=== PATIENT | male | born 1950 | race Two or more races ===

== ENCOUNTER 2022-02-12 07:32 | Day surgery (SDC) | payer BC ==
--- NOTE | 2022-02-06 17:25 | EKG ---
Test Date: 2022-02-05 Test Time: 08:44:21 Melon Packer: JESSICA MEASUREMENT RESULTS: Intervals: Rate: 62 FL: 172 QRSD: 68 QT: 396 QTc: 401 [place]: P: 64 FL: 172 QRS: 61 T: 79 INTERPRETIVE STATEMENTS: Normal sinus rhythm Septal infarct, age undetermined Abnormal ECG No previous ECG available for comparison Electronically Signed On 02-06-22 17:24:16 [employer] by Devon Stroud
[2022-02-12] MEDS ORDERED: ALBUTEROL 2.5 MG/3 ML NEB SOL ONE (07:41)
[2022-02-12] MEDS ORDERED: CEFAZOLIN SODIUM 1 GM/VIAL ONE (07:54)
[2022-02-12] MEDS ORDERED: Ringers Lactate 1,000 ML IV ONE (07:54)
[2022-02-12] MEDS ORDERED: BUPIVACAINE 0.5% PF 10 ML VIAL ONE (08:39)
[2022-02-12] MEDS ORDERED: LIDOCAINE 2% MPF 5 ML VIAL ONE (08:49)
[2022-02-12] MEDS ORDERED: MIDAZOLAM HCL 2 MG/2 ML INJ ONE (08:49)
[2022-02-12] MEDS ORDERED: FENTANYL CITR 100 MCG/2 ML ONE (08:49)
[2022-02-12] MEDS ORDERED: propofoL 200 MG/20 ML VIAL IV ONE (08:49)
[2022-02-12] MEDS ORDERED: KETOROLAC 30 MG/ML INJ ONE (09:08)
[2022-02-12] MEDS ORDERED: NS 0.9% VIAL 10 ML ONE ×2 (09:13→09:27)
[2022-02-12] MEDS ORDERED: Phenylephrine HCl 10 MG/ML 1 ML VIAL ONE (09:27)
[2022-02-12] MEDS ORDERED: Mastisol Adhesive Liq ONE (09:44)
--- NOTE | 2022-02-12 10:07 | P.OP ---
Date of Service: 02/12/22 Preop diagnosis: Right neck mass, history of lung cancer Postop diagnosis: Same Procedure performed: Incisional biopsy right neck mass Surgeon: Brayden Munoz MD Knapsack Sprayer: None Estimated blood loss: Minimal Specimen: Right neck mass Findings: Metastatic lung cancer Anesthesia: General Complications: None Drains: None Fluids and blood products: Nonapplicable Disposition: Recovery room Operative note: Patient brought to the OR placed supine position. General anesthesia begun. Patient prepped and draped in usual sterile fashion. 15 blade used to make a 2 cm incision in the base of the right neck. Subcutaneous fascia and platysma divided. A deep lymph node identified. It was pathologic in nature. 15 blade used to make incision over the lymph node ellipse in nature. A piecemeal biopsy was done. Specimen sent for frozen section and revealed metastatic lung cancer. Wound irrigated bleeding controlled cautery. There was enough specimen for diagnosis. 3-0 chromic used to approximate subcutaneous tissue. And 3-0 chromic also used to close skin. Sterile dressing applied. Patient awakened and taken to recovery room in good general condition. CC: Dr. Bailey's office
[2022-02-12] MEDS ORDERED: EPINEPHRINE INH 0.5 ML VIAL IH ONE (10:10)
[2022-02-12] MEDS ORDERED: HYDROCODONE/APAP 5/325 MG TAB PO PRN (10:11)
[2022-02-12] MEDS ORDERED: HYDROCODONE/CHLORPHEN 5 ML/OSYR PO ONE (10:15)
[2022-02-12] MEDS ORDERED: ALBUTEROL INHALER 60 PUFF/8 GM IH PRN ×2 (11:07→12:00)
[2022-02-12 15:09] VITALS: BP 116/74; TEMP 99.3
[2022-02-12 15:11] VITALS: O2SAT 95
== END 2022-02-12 14:09 | disposition home or self-care (01) ==
LOC: OR 07:32
PROVIDERS: ATTEND Surgery
PROC: 0JB40ZZ Excision of Right Neck Subcutaneous Tissue and Fascia, Open Approach (ICD-10-PCS; principal; 2022-02-12 09:00)
DX: C79.89 Secondary malignant neoplasm of other specified sites (principal); R22.1 Localized swelling, mass and lump, neck; Z85.118 Personal history of other malignant neoplasm of bronchus and lung
CPT/HCPCS: 11621; 93005; 88331; 88305; J2704; J2370; J7613; J2250; J3010; A4216 ×2; J7120; J0690; J2001

== ENCOUNTER 2022-02-13 07:39 | Emergency (ER) | payer BC ==
--- OUTSIDE RECORDS SUMMARY | 2022-02-13 07:44 | XMS REPORT | Continuity of Care Document ---
:1950 Author Organization [facility] t Address [address] [place] [address] Care Team Providers Name Role Phone ADELFO DOMITILAANH Primary Care Physician Unavailable DAVIDE INGRAM Attending Clinician Unavailable Davide Macario Attending Clinician Isabelle Ashraf RN Attending Clinician LAWSON LYONS Attending Clinician Unavailable Michel Bustos Attending Clinician Eric Vincent DO Attending Clinician Lawson Lyons MD Attending Clinician DAYAMI WATERMAN III Attending Clinician Unavailable King PAUL MD, James C Attending Clinician Unknown, Attending Attending Clinician Unavailable Doctor Unassigned, [facility] Attending Clinician Unavailable RYANNE INGRAM Attending Clinician Unavailable NIKKO HANKS Attending Clinician Unavailable DAVIDE INGRAM Admitting Clinician Unavailable LAWSON LYONS Admitting Clinician Unavailable Lawson Lyons MD Admitting Clinician Payers Payer Name Policy Type Policy Number Effective Date Expiration Date Baldemar cutler [facility] [id number] 2021 00:00:00 Problems Condition Condition Condition Status Onset Resolution Last Treating Co mments Source Name Details Category Date Date Treatment Clinician Date Pleural Pleural Disease Active 2021-02 Univers effusion effusion 2-05 ity of 00:00: [place] [address] Medical Branch 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 11-05 disease, disease, 00:00: Hospit a lumbar lumbar 00 l Strain of Strain of Disease Active Met hodi back back 11-05 00:00: Hospita 00 l No known No known Disease Unive rs active active ity of problems problems [facility] Allergies, Adverse Reactions, Alerts Allergy Allergy Status Severity Reaction(s) Onset Inactive Treating Comm ents Source Name Type Date Date Clinician NO KNOWN Drug Active Univers ALLERGIE Class ity of S [facility] Social History Social Habit Start Date Stop Date Quantity Comments Source History of Cigarette Smoker Universi ty of tobacco use [facility] Exposure to 2022-01-13 2022-01-23 Not sure [facility] SARS-CoV-2 00:00:00 14:01:00 [facility] (event) Branch Alcohol intake 2022-01-23 2022-01-23 Current drinker Unive rsity of 00:00:00 00:00:00 of alcohol [facility] (finding) Branch History SDOH Food 2022-01-21 2022-01-21 1 Univers ity of Worry 00:00:00 00:00:00 [place] [facility] History SDOH Food 2022-01-21 2022-01-21 1 Univers ity of Scarcity 00:00:00 00:00:00 [place] [facility] History SDOH 2022-01-21 2022-01-21 2 University o f Transport Med 00:00:00 00:00:00 [place] Medic al [facility] History SDOH 2022-01-21 2022-01-21 2 University o f Transport Non-Med 00:00:00 00:00:00 [place] M edical Branch Tobacco use and 2022-01-18 2022-01-18 Smokeless tobacco Un iversity of exposure 00:00:00 00:00:00 non-user [facility] Sex Ass[birth year] At [birth year] Denominational 00:00:00 00:00:00 Hospital Smoking Status Start Date Stop Date Source Tobacco smoking consumption [facility] unknown Smokes tobacco daily 2022-01-18 00:00:00 Univers ity of [facility] Never smoked tobacco [facility] Medications Ordered Filled Start Stop Current Ordering Indication Dosage Frequency Signature Comments Components Source Medication Medication Date Date Medication? Clinician (SIG) Name Name apixaban 2021-02- No 10mg 10 mg, Univer s (ELIQUIS) 03-27 Oral, ity of tablet 10 00:00: 23:10 ONCE, [place] mg [place] :[place] dose, On Medical Sat Branch 01/23/22 at 1800, Routine
Indicatio ns: DVT/PE apixaban 2021-02- Yes 1473 Take 2 Univer s (ELIQUIS) 5 2 01-10 tablets by i ty of mg tablet 00:00: 05:59 mouth [place] 00 :[place] (two) Medical times Branch daily for 7 days, THEN 1 tablet 2 (two) times daily for 23 days. Indication s: blood clot in a deep vein of the extremitie s cefTRIAXone 2021-02- Yes 1000mg 1,000 mg, Univers (ROCEPHIN) 03-2212 IV ity of 1,000 mg in 17:30: 17:29 [facility] [place] NaCl 0.9% 00 :00 Q24H ABX, Medic al (NS) 50 mL 6 doses, Branc h MINI-BAG First dose on Tue01/19/22 at 1130, Last dose on Tue01/24/22 at 1130, Administer over 30 Minutes, 50 mL
Reas on for Anti-Infec tive: Documented Infection< br>Documen isabela Infection Site: Respirator y
Durat ion of Therapy: 7 days metoprolol 2021-02 Yes 50mg 50 mg, Unive rs succinate 2-06 Oral, ity of XL (TOPROL 15:00: DAILY, [place] XL) tablet 00 First dose Med ical 50 mg on Tue Branch 01/19/22 at 0900, Until Discontinu ed, Routine clopidogreL 2021-02 Yes 75mg 75 mg, Univ ers (PLAVIX) 75 2-06 Oral, ity of mg tablet 15:00: DAILY, [place] 75 mg 00 First dose Medical on Tue Branch 01/19/22 at 0900, Until Discontinu ed, Routine azithromyci 2021-02- Yes 500mg 500 mg, U nivers n 03-22 12-10 Oral, ity of (ZITHROMAX) 15:00: 14:59 DAILY, 4 [place] tablet 500 00 :00 doses, Medical mg First dose Branch on Tue01/19/22 at 0900, Last dose on Tue01/22/22 at 0900, HEIDE
Re ason for Anti-Infec tive: Documented Infection< br>Documen isabela Infection Site: Respirator y
Durat ion of Therapy: Other (see Comments) iopamidol 2021-02- No [id number] 100mL 100 mL, Univers (ISOVUE 03-22- Intravenou ity o f 370-500 mL) 13:00: 12:05 s, ONCE, 1 [place] injection 00 :00 dose, On Medica l 100 mL Tue Branch 01/19/22 at 0700, Routine nicotine 2021-02 Yes 1{patch 1 Patch, Un bertha (NICODERM) 2 } Topical, ity o f 21 mg/24 hr 07:15: Administer [place] patch 1 00 over 24 Medical Patch Hours, Branch Q24H, First dose on Tue01/19/22 at 0115, Until Discontinu ed, Routine ipratropium 2021-02 Yes 3mL 3 mL, Unive rs -albuteroL 03-22 Inhalation ity of (DUONEB) 06:15: , Q6H, [place] 0.5 mg-3 00 First dose Medic al mg(2.5 mg on Tue Branch base)/3 mL 01/19/22 at nebulizer 0015, solution 3 Until mL Discontinu ed, Routine traMADoL 2021-02- Yes [id number] 50mg Take 1 Univer s (ULTRAM) 50 03-22-14 tablet by it y of mg tablet 00:00: 05:59 mouth [place] 00 :00 every 6 Medical (six) Branch hours as needed for Pain (scale 4-6) or Pain (scale 7-10) for up to 7 days. Indication s: acute pain traMADoL 2021-02- Yes 4647 50mg Take 1 Univer s (ULTRAM) 50 03-22-14 tablet by it y of mg tablet 00:00: 05:59 mouth [place] 00 :00 every 6 Medical (six) Branch hours as needed for Pain (scale 4-6) or Pain (scale 7-10) for up to 7 days. Indication s: acute pain traMADoL 2021-02- Yes [id number] 50mg Take 1 Univer s (ULTRAM) 50 03-22 tablet by it y of mg tablet 00:00: 05:59 mouth [place] 00 :00 every 6 Medical (six) Branch hours as needed for Pain (scale 4-6) or Pain (scale 7-10) for up to 7 days. Indication s: acute pain levoFLOXaci 2021-02- Yes [id number] 750mg Take 1 Univers n 750 mg 03-22 tablet by ity o f tablet 00:00: 05:59 mouth [place] 00 :00 every 24 Medical (twenty-fo Branch ur) hours for 4 days. levoFLOXaci 2021-02- Yes [id number] 750mg Take 1 Univers n 750 mg 03-22 tablet by ity o f tablet 00:00: 05:59 mouth [place] 00 :00 every 24 Medical (- Branch ur) hours for 4 days. levoFLOXaci 2021-02- Yes [id number] 750mg Take 1 Univers n 750 mg 03-22 tablet by ity o f tablet 00:00: 05:59 mouth [place] 00 :00 every 24 Medical (-fo Branch ur) hours for 4 days. enoxaparin 2021-02 Yes 40mg 40 mg, Unive rs (LOVENOX) 2 Subcutaneo ity of injection 23:00: [place]ILY[place] 40 mg 00 First dose Medical on Tue01/18/22 at 1700, Until Discontinu ed, Routine ondansetron 2021-02 Yes 4mg 4 mg, Slow Univers (ZOFRAN 2-05 IV Push, ity of (PF)) 20:28: Q6HPRN, [place] injection 4 53 Starting Medi omar mg on Tue01/18/22 at 1428, Until Discontinu ed, Routine, Nausea and Vomiting (N/V) HYDROcodone 2021-02- Yes 1{tbl} 1 tablet, Univers -acetaminop 2 12-07 Oral, ity of hen (NORCO 20:28: 20:27 Q6HPRN, [place] as 5) 5-325 mg 48 :48 Starting Medi omar tablet 1 on Mon Branch tablet 01/18/22 at 1428, Until 01/20/22 at 1427, Routine, Pain (scale 4-6) acetaminoph 2021-02 Yes 650mg 650 mg, Un bertha en 2-05 Oral, ity of (TYLENOL) 20:28: Q6HPRN, [place] tablet 650 46 Starting Medic al mg on Mon Branch 01/18/22 at 1428, Until Discontinu ed, Routine, Pain (scale 1-3) azithromyci 2021-02- No 500mg 500 mg, IV Univers n 2-01-18 Piggyback, ity of (ZITHROMAX) 17:30: 19:14 [place]CE, 1 [place] 500 mg in 00 :00 dose, On Medica l NaCl 0.9% [facility] (NS) 250 mL 01/18/22 at VIAL-MATE 1130, IV Administer piggyback over 60 Minutes, 250 mL
R kayla for Anti-Infec tive: Documented Infection< br>Documen isabela Infection Site: Respirator y
Du ration of Therapy: Other (see Comments) cefTRIAXone 2021-02 No 1000mg 1,000 mg, Univers (ROCEPHIN) 03-21 IV ity of 1,000 mg in 17:15: 18:03 [facility] [place] NaCl 0.9% 00 :00 ONCE, 1 Medical (NS) 50 mL dose, On Branc h MINI-BAG 01/18/22 at 1115, Administer over 30 Minutes, 50 mL
Reas on for Anti-Infec tive: Documented Infection< br>Documen isabela Infection Site: Respirator y
Du ration of Therapy: Other (see Comments) metoprolol 2021-02 Yes 50mg Take 50 mg U nivers succinate 0-11 by mouth ity of XL 50 mg 24 00:00: in the [facility] s hr tablet 00 morning. Medica l Branch clopidogreL 2021-02 Yes 75mg Take 75 mg Univers 75 mg 0-11 by mouth ity of tablet 00:00: in the [place] 00 morning. Medical Branch metoprolol 2021-02 Yes 50mg Take 50 mg U nivers succinate 0-11 by mouth ity of XL 50 mg 24 00:00: [place] hr tablet 00 morning. Medica l Branch clopidogreL 2021-02 Yes 75mg Take 75 mg Univers 75 mg 0-11 by mouth ity of tablet 00:00: in the [place] morning. Medical Branch metoprolol 2021-02 Yes 50mg Take 50 mg U nivers succinate 0-11 by mouth ity of XL 50 mg 24 00:00: [place] hr tablet 00 morning. Medica l Branch clopidogreL 2021-02 Yes 75mg Take 75 mg Univers 75 mg 0-11 by mouth ity of tablet 00:00: in the [place] morning. Medical Branch metoprolol 2021-02 Yes 50mg Take 50 mg U nivers succinate 0-11 by mouth ity of XL 50 mg 24 00:00: [place] hr tablet 00 morning. Medica l Branch clopidogreL 2021-02 Yes 75mg Take 75 mg Univers 75 mg 0-11 by mouth ity of tablet 00:00: in the [place] morning. Medical Branch metoprolol Yes 50mg QD Take 50 mg M ethodi succinate 7-[address] XL 00:00: daily. Hospita (TOPROL-XL) 00 l 50 mg 24 hr tablet amy 2015-02 Yes Apply to Univers sulfADIAZIN 0-26 area(s) 2 ity of E 00:00: (two) [place] (SILVADENE) 00 times Medical 1 % cream daily. Branch silver 2015-02 Yes Apply to Univers sulfADIAZIN 0-26 area(s) 2 ity of E 00:00: (two) [place] (SILVADENE) 00 times Medical 1 % cream daily. Branch silver 2015-02 Yes Apply to Univers sulfADIAZIN 0-26 area(s) 2 ity of E 00:00: (two) [place] (SILVADENE) 00 times Medical 1 % cream daily. Branch traMADOL 2015-02 Yes 50mg Take 1 Univers (ULTRAM) 50 0-26 tablet by ity of mg tablet 00:00: mouth [place] 00 every 6 Medical (six) Branch hours as needed for Pain (scale 4-6). amy 2015-02 Yes Apply to Univers sulfADIAZIN 0-26 area(s) 2 ity of E 00:00: (two) [place] (SILVADENE) 00 times Medical 1 % cream daily. Branch silver 2015-02 Yes Apply to [facility] sulfADIAZIN 0-26 area(s) 2 ity of E 00:00: (two) [place] (SILVADENE) 00 times Medical 1 % cream daily. Branch traMADOL 2015-02 Yes 50mg Take 1 Univers (ULTRAM) 50 0-26 tablet by ity of mg tablet 00:00: mouth [place] 00 every 6 Medical (six) Branch hours as needed for Pain (scale 4-6). traMADOL 2015-02 50mg Take 1 Univer s (ULTRAM) 50 0-26 01-19 tablet by it y of mg tablet 00:00: 00:00 mouth [place] 00 :00 every 6 Medical (six) Branch hours as needed for Pain (scale 4-6). Vital Signs Vital Name Observation Time Observation Value Comments Source Systolic blood 2022-01-23 23:30:00 121 mm[Hg] [facility]iver [facility] Diastolic blood 2022-01-23 23:30:00 75 [facility] 2022-01-23 23:30:00 68 /min [facility] Respiratory rate 2022-01-23 23:30:00 20 /min [facility] saturation in 2022-01-23 23:30:00 95 /min [facility] Arterial blood by [facility] Pulse oximetry Branch Body temperature 2022-01-23 20:02:00 37 Shruthi [facility] Body weight 2022-01-23 20:02:00 56.246 kg [facility] BMI 2022-01-23 20:02:00 20.01 kg/m2 [facility] Systolic blood 2022-01-19 23:00:00 145 mm[Hg] Univer sity [facility] Diastolic blood 2022-01-19 23:00:00 66 mm[Hg] Unive rsity [facility] [place] [facility] Heart rate 2022-01-19 23:00:00 74 /min [facility] Respiratory rate 2022-01-19 23:00:00 23 /min [facility] saturation in 2022-01-19 23:00:00 94 /min [facility] Arterial blood by [facility] Pulse oximetry Branch Body temperature 2022-01-19 21:00:00 36.39 Shruthi [facility] Body weight 2022-01-19 20:30:00 56.382 kg [facility] BMI 2022-01-19 20:30:00 20.06 kg/m2 [facility] Body height 2022-01-18 20:30:00 167.6 cm [facility] Systolic blood 2022-01-15 19:04:00 144 mm[Hg] [facility] Diastolic blood 2022-01-15 19:04:00 74 mm[Hg] [facility] Heart rate 2022-01-15 19:04:00 79 /min [facility] Body temperature 2022-01-15 19:04:00 36.61 Shruthi [facility] Respiratory rate 2022-01-15 19:04:00 17 /min [facility] Body weight 2022-01-15 19:04:00 56.7 kg [facility] Oxygen saturation in 2022-01-15 19:04:00 96 /min [facility] Arterial blood by [facility] Pulse oximetry [address] Procedures Procedure Date / Time Performing Clinician Source Performed COMP. METABOLIC PANEL 2022-01-23 21:18:00 Davide Ingram [facility] ([id number]) [facility] CBC WITH DIFF 2022-01-23 21:18:00 Davide Ingram [facility] PROTHROMBIN TIME / INR 2022-01-23 21:18:00 Davide Ingram [facility] ACTIVATED PARTIAL 2022-01-23 21:18:00 Davide Ingram [facility] THRMPLAS [facility] CONSENT/REFUSAL FOR 2022-01-23 19:55:43 Doctor Unassigned, [facility] DIAGNOSIS AND TREATMENT [facility] [place] [facility] XR CHEST 1 VW 2022-01-19 19:07:22 [facility] PROTEIN TOTAL 2022-01-19 18:59:00 [facility] LACTATE DEHYDROGENASE 2022-01-19 18:59:00 Lawson Lyons [facility] GLUCOSE 2022-01-19 18:58:00 Eric Vincent [facility] AMYLASE BODY FLUID 2022-01-19 18:39:00 Eric Vincent [facility] GLUCOSE BODY FLUID 2022-01-19 18:39:00 Lawson Lyons [facility] PH, BODY FLUID 2022-01-19 18:39:00 Eric Vincent [facility] T.PROTEIN BODY FLUID 2022-01-19 18:39:00 Eric Vincent [facility] TOTAL BODY FLUID 2022-01-19 18:38:00 Lawson Lyons [facility] BODY FLUID 2022-01-19 18:38[facility]00 [facility]/ANAEROBIC [facility] ) BODY FLUID DIRECT COUNT 2022-01-19 18:37:00 Eric Vincent [facility] TRANSTHORACIC ECHO (TTE) 2022-01-19 16:16:00 Lawosn Lyons [facility] CT THORAX W CONTRAST 2022-01-19 11:50:00 Lawson Lyons [facility] LACTATE DEHYDROGENASE 2022-01-19 10:08:00 Lawson Lyons [facility] COMP. METABOLIC PANEL 2022-01-19 10:08:00 [id number] LIPID PANEL ([id number])(TOTAL 2022-01-19 10:08:00 Lawson Lyons [facility] CHOLESTEROL, [facility] Branch TRIGLYCERIDES, HDL) CBC WITH DIFF 2022-01-19 10:08:00 [facility] 2022-01-18 22:43:00 Michel Santos [facility] BLOOD CULTURE SCREEN 2022-01-18 17:30:00 Michel Santos [facility] COVID-19 (ID NOW RAPID 2022-01-18 17:18:00 Michel Santos [facility] TESTING) Medical Branch LAB ONLY COVID 2022-01-18 17:18:00 Michel Santos [facility] INTERPRETATION [facility] BLOOD CULTURE SCREEN 2022-01-18 17:15:00 Michel Santos [facility] XR CHEST 1 VW 2022-01-18 16:14:53 Michel Santos [place] [facility] HB ECG ROUTINE & RHYTHM 2022-01-18 16:10:57 Michel Santos [facility] STRIP Medical Branch MAGNESIUM 2022-01-18 16:08:00 Michel Santos [facility] TROPONIN I 2022-01-18 16:08:00 Michel Santos [facility] COMP. METABOLIC PANEL 2022-01-18 16:08:00 Michel Santos [facility] ([id number]) Medical Branch CBC WITH DIFF 2022-01-18 16:08:00 Michel Santos [facility] N-TERMINAL PRO-BNP 2022-01-18 16:08:00 Michel Santos [facility] CONSENT/REFUSAL FOR 2022-01-18 15:31:59 Doctor Unassigned, [facility] DIAGNOSIS AND T[facility] [address] CONSENT/REFUSAL FOR 2022-01-18 15:31:55 Doctor Unassigned, [facility] DIAGNOSIS AND TREATMENT [facility] [address] ASSIGNMENT OF BENEFITS 2022-01-15 18:48:40 Doctor Unassigned, [facility] [address] Plan of Care Planned Activity Planned Date Details Comments Source Future Scheduled 2022-01-28 SHINGLES VACCINES (1 Met [facility] Test 08:47:48 of 2) [code = SHINGLES VACCINES (1 of 2)] Future Scheduled 2022-01-28 65+ [facility]OCOCCAL [facility] Test 08:47:48 VACCINE (1 - PCV) [code = 65+ PNEUMOCOCCAL VACCINE (1 - PCV)] Future Scheduled 2022-01-28 INFLUENZA VACCINE [facility] Test 08:47:48 [code = INFLUENZA VACCINE] Future Scheduled 2022-01-28 COVID-19 VACCINE (#1) [facility] Hospital Test 08:47:48 [code = COVID-19 VACCINE (#1)] Future Scheduled 2022-01-28 Hepatitis C screening [facility] Test 08:47:48 (procedure) [code = 508616223] Future Scheduled 2022-01-28 COLONOSCOPY SCREENING [facility] Test 08:47:48 [code = COLONOSCOPY SCREENING] Encounters Start End Encounter Admission Attending Care Care Encounter Source Date/Time Date/Time Type Type Clinicians Facility Department ID 2022-01-23 2022-01-23 [id number] Univers 14:03:00 18:00:00 [facility] 2022-01-23 [facility] [id number] Univers 14:03:00 18:00:00 Davide BEY [id number] i ty of [place] 4.2.7.2.686 [facility] [id number] [facility] 084 Branch 2022-01-20 2022-01-20 Transition TOÑO Ashraf [id number] Univers 00:00:00 00:00:00 of Care Isabelle GOODMAN [id number] i ty of NIL[place] 4.2.7.2.686 [facility] [id number] [facility] 403 Branch 2022-01-18 2022-01-19 Inpatient X STEPHEN [facility] LELA [id number] Univers 09:41:00 19:09:00 LAWSON [facility] 2022-01-18 2022-01-19 Hospital Michel Santos [facility] [id number] Univers 09:41:00 19:09:00 Encounter Eric Vincent [id number] ity of Lawson Lyons 4.2.7.2.686 [facility] [id number] [place] [id number] Branch 2022-01-15 2022-01-15 Outpatient Peggy WATERMAN III [facility] [id number] Univers 13:00:00 14:22:51 DAYAMI lombardi [facility] 2022-01-15 2022-01-15 Urgent Dayami Waterman [facility] [id number] Univers 13:00:00 13:20:00 Care Unknown, Attending HEALTH [id number] it[facility] 4.2.7.2.686 Dennis as KENDY?BLEA [id number] Pr dical [address] MEDICAL OFFICE BUILDING 2022-01-15 2022-01-15 Orders Doctor KIMBERLY [id number] Univers 00:00:00 00:00:00 Only Unassigned, EMILEE [id number] [facility] 4.2.7.2.686 Dennis as [id number] [address] 2020-11-05 2020-11-05 Outpatient SIFLeanna, [facility] [id number] [place] 00:00:00 00:00:00 RYANNE [address] 2020-11-05 2020-11-05 Outpatient NIKKO HANKS [facility] [id number] [place] 00:00:00 00:00:[address] Results Test Description Test Time Test Comments Results Result Comments Source CBC WITH DIFF 2022-01-23 22:11:32 Test Item Value Reference Range Interpretation Comme nts WBC (test code = 6690-2) See_Comment H [A utomated message] The system which [email or web address] nerated this result transmit isabela reference range: 4.20 - 1 0.70 10*3/?L. The reference r cesar was not used to interpr et this result as normal/abnor mal. RBC (test code = 789-8) See_Comment [Au tomated message] The system which [email or web address] nerated this result transmit isabela reference range: 4.26 - 5 .52 10*6/?L. The reference r cesar was not used to interpr et this result as normal/abnor mal. HGB (test code = 718-7) 14.4 g/dL 12.2-16.4 HCT (test code = 4544-3) 42.7 % 38.4-49.3 MCV (test code = 787-2) 93.2 fL 81.7-95.6 MCH (test code = 785-6) 31.4 pg 26.1-32.7 MCHC (test code = 786-4) 33.7 g/dL 31.2-35.0 RDW-SD (test code = 74583-1) 42.8 fL 38.5-51.6 RDW-CV (test code = 788-0) 12.4 % 12.1-15.4 PLT (test code = 777-3) See_Comment [Au tomated message] The system which ge nerated this result transmit isabela reference range: 150 - 32 8 10*3/?L. The reference range was not used to interpret th is result as normal/abnormal . MPV (test code = 31078-3) 11.5 fL 9.8-13.0 NRBC/100 WBC (test code = See_Comment [ Automated message] The [id number]) system which ge nerated this result transmit isabela reference range: 0.0 - 10 .0 /100 WBCs. The reference r cesar was not used to interpr et this result as normal/abnor mal. NRBC x10^3 (test code = See_Comment [Au tomated message] The 7897416313) system which [email or web address] nerated this result transmit isabela reference range: 10*3/?L. The reference range was not u sed to interpret this result as normal/abnormal . GRAN MAT (NEUT) % (test code 78.5 % = 770-8) IMM GRAN % (test code = 0.80 % 6877098617) LYMPH % (test code = 736-9) 5.3 % MONO % (test code = 5905-5) 9.5 % EOS % (test code = 713-8) 5.3 % BASO % (test code = 706-2) 0.6 % GRAN MAT x10^3(ANC) (test 13.51 10*3/uL 1.99-6.95 H code = 9229217137) IMM GRAN x10^3 (test code = 0.13 10*3/uL 0.00-0.06 H 3441659828) LYMPH x10^3 (test code = 0.91 10*3/uL 1.09-3.23 L 731-0) MONO x10^3 (test code = 1.64 10*3/uL 0.36-1.02 H 742-7) EOS x10^3 (test code = 0.91 10*3/uL 0.06-0.53 H 711-2) BASO x10^3 (test code = 0.11 10*3/uL 0.01-0.09 H 704-7) Lab Interpretation (test Abnormal code = 39165-4) [facility]. METABOLIC PANEL ([id number])2022-01-23 21:44:52 Test Item Value Reference Range Interpretation Comments NA (test code = 133 mmol/L 135-145 L 2124908117) K (test code = 4.5 mmol/L 3.5-5.0 4976582108) CL (test code = 103 mmol/L 98-108 6074067826) CO2 TOTAL (test code = 24 mmol/L 23-31 1780827538) AGAP (test code = 2-16 5325840404) BUN (test code = 13 mg/dL 7-23 8931460834) GLUCOSE (test code = 127 mg/dL 70-110 H 3663614583) CREATININE (test code = 0.66 mg/dL 0.60-1.25 9225121340) TOTAL BILI (test code = 0.4 mg/dL 0.1-1.7 4886046722) CALCIUM (test code = 8.2 mg/dL 8.6-10.6 L 9884759513) T PROTEIN (test code = 5.9 g/dL 6.3-8.2 L 4952451489) ALBUMIN (test code = 3.1 g/dL 3.5-5.0 L 2646940279) ALK PHOS (test code = 71 U/L 34-122 0126288636) ALTv (test code = 26 U/L 5-50 1742-6) AST(SGOT) (test code = 26 U/L 13-40 0728838571) eGFR (test code = mL/min/1.73m2 2233903171) LATIA (test code = LATIA) Association of Glomerular Filtration Rate (GFR) and Staging of Kidney Disease* + --+ --+ ------+| GFR (mL/min/1.73 m2) ?| With Kidney Damage ?| ?Without Kidney Damage+ --------+ --------+ +| ?>90 ?| ?Stage one ?| ? Normal ?+ ---+ ---+ -------+| ?60-89 ?| ?Stage two ?| ? Decreased GFR ? + --+ --+ ------+| ?30-59 ?| ?Stage three ?| ? Stage three ? + --+ --+ ------+| ?15-29 ?| ?Stage four ? | ? Stage four ?+ ---+ ---+ -------+| ?<15 (or dialysis) ? ?| ?Stage five ? | ? Stage five ?+ ---+ ---+ -------+ *Each stage assumes the associated GFR level has been in effect for at least three months. ?Stages 1 to 5, with or without kidney disease, indicate chronic kidney disease. Notes: Determination of stages one and two (with eGFR >59mL/min/1.73 m2) requires estimation of kidney damage for at least three months as defined by structural or functional abnormalities of the kidney, manifested by either:Pathological abnormalities or Markers of kidney damage (including abnormalities in the composition of the blood or urine or abnormalities in imaging tests). Lab Interpretation Abnormal (test code = 72055-6) [facility] THRM[facility] [id number] 21:38:09 Test Item Value Reference Range Interpretation Comments APTT Patient (test See_Comment [Automat ed code = 3173-2) message] The system which generated this result transmitted reference range : 23 - 38 Seconds . The reference range was not used to interpr et this result as normal/abnormal . LATIA (test code = LATIA) The [facility] patient population mean normal value for aPTT is 30 seconds. Lab Interpretation Normal (test code = 31919-4) [facility] HospitalProthrombin Time / [id number] 21:36:09 Test Item Value Reference Range Interpretation Comments PROTIME PATIENT (test See_Comment [Auto mated message] code = 5964-2) The system wh ich generated this result transmitted ref erence range: 12.0 - 1 4.7 Seconds. The re ference range was not u sed to interpret this result as normal/abnor mal. INR (test code = 6301-6) Nor mal INR <1.1; Warfarin Therap eutic range 2.0 to 3. 0 or 2.5 to 3.5, dep ending upon the indica tions. Lab Interpretation (test Normal code = 69886-8) [facility] HospitalTransthoracic echo (TTE)2022-01-19 21:50:45 Test Item Value Reference Range Interpretation Comments Height (test code = in 6219579981) Weight (test code = lbs 4367749774) Systolic BP (test code = mmHg 4870715712) Diastolic BP (test code mmHg = 0712702019) Heart Rate (test code = bpm 0380602306) BSA (test code = 1.65 m2 4714096282) Ao root diam (test code 4.00 cm = 4123046693) Aortic root (test code = 4.0 cm 1606404395) Ao root annulus (test 4.0 cm code = 0898444134) LVOT diameter (test code 1.95 cm = 4562458107) LVOT area (test code = 3.00 cm2 7040206473) LVIDD (test code = 3.60 cm 6938205847) Left Ventricular End 53.1 mL Diastolic Volume by Teichholz Method (test code = 9524641) IVS (test code = 1.22 cm 7402801628) Interventricular Septum 1.22 cm Diastolic Thickness by 2D (test code = 4353784) LVPWD (test code = 1.22 cm 7023495172) PW (test code = 1.22 cm 0.6-1.8 2946746297) EF(Teich) (test code = 55.10 % 1700799375) LVIDS (test code = 2.60 cm 9981664105) Left Ventricular End 23.9 mL Systolic Volume by Teichholz Method (test code = 2293891) FS (test code = 28 % 4533003395) EF - 2D (test code = 55.10 % 67454214) LA size (test code = 3.1 cm 6144754775) TR Peak Hubert (test code = 222.1 cm/s 3524696887) Triscuspid Valve mmHg Regurgitation Peak Gradient (test code = 7537746165) LAV(MOD-sp4) (test code 48.30 mL = 0613823180) MV Peak E Hubert (test code 63.0 cm/s = 0739452270) MV stenosis pressure 1/2 59.3 ms time (test code = 5798452580) E wave decelartion time 0.20 s (test code = 0919496641) MV Peak A Hubert (test code 65.7 cm/s = 0693881024) E/A ratio (test code = ratio 7576671314) MV Prop V (test code = 71.80 cm/s 9893190424) MV E/e' septal (test 9.9 cm/s code = 4307806522) Tapse (test code = 1.89 cm 6606980635) LVOT stroke volume (test 93.20 cm3 code = 5233707697) LVOT peak hubert (test code 142.7 cm/s = 1393824801) LVOT mn grad (test code mmHg = 8028403013) AV LVOT peak gradient mmHg (test code = 4427601002) LVOT peak VTI (test code 31.3 cm = 4379687524) LV V1 mean (test code = 90.90 cm/s 1774042985) Aortic valve mean 94.4 cm/s velocity (test code = 1823386981) Ao peak hubert (test code = 131.0 cm/s 9519569894) Ao VTI (test code = 29.8 cm 6147649790) AV area by cont VTI 3.1 cm2 (test code = 2474384150) AV area peak hubert (test 3.2 cm2 code = 9916494913) Ao max PG (test code = 6.90 mm[Hg] 1719108725) AV peak gradient (test mmHg code = 8868117670) AV valve area (test code 3.10 cm2 = 6208538576) AV mean gradient (test mmHg code = 2751606092) Radiology Study observation (narrative) (test code = 97711-0) LATIA (test code = LATIA) ?Left?Ventricle: Left ventricle size is normal. Normal wall thickness. Normal wall motion. Normal systolic function with a visually estimated EF of 55 - 60%. ?Right?Ventricle: Right ventricle size is normal. Normal systolic function. ?Tricuspid?Valve: Insufficient tricuspid regurgitation jet to estimate RVSP, but probably normal. RA pressure is 0-5 mmHg. ?Left?Atrium: Left atrium is mildly dilated. ?Pericardium: Small pericardial effusion present. No indication of cardiac tamponade. Left VentricleLeft ventricle size is normal. Normal wall thickness. Normal wall motion. Normal systolic function with a visually estimated EF of 55 - 60%. Indeterminate diastolic function.Right VentricleRight ventricle size is normal. Normal systolic function.Left AtriumLeft atrium is mildly dilated.Right AtriumRight atrium size is normal. There is a prominent Eustachian valve.Mitral ValveMitral valve structure is normal. Trace transvalvular regurgitation.Tricusp id ValveTricuspid valve structure is normal. Insufficient tricuspid regurgitation jet to estimate RVSP, but probably normal.Trace transvalvular regurgitation. RA pressure is 0-5 mmHg.Aortic ValveTricuspid.Pulmon ic ValveNot well visualized.Ascending AortaNormal sized aorta.PericardiumSmal l pericardial effusion present. No indication of cardiac tamponade.Study DetailsStudy quality was adequate. A complete echocardiogram was performed using 2D, color flow Doppler and spectral Doppler. [facility] HospitalPH, Body [id number] 21:42:04 Test Item Value Reference Range Interpretation Comments PH BF (test code = 5699573546) UNSPUN BODY FLUID COLOR Yellow (test code = 8512903250) UNSPUN BODY FLUID Slightly Cloudy CLARITY (test code = 8187692554) SPUN BODY FLUID COLOR Yellow (test code = 8043378931) SPUN BODY FLUID CLARITY Clear (test code = 8690551281) Sediment (test code = The sediment volume is 0741397718) <0.1 mLs of the total fluid volume of 4.0 mls and its color is red/white. [facility] HospitalProtein Total [id number] 20:11:06 Test Item Value Reference Range Interpretation Comments T PROTEIN (test code = 2740426821) 7.2 g/dL 6.3-8.2 Lab Interpretation (test code = Normal 52868-0) [facility] HospitalLACTATE [id number] 20:11:06 Test Item Value Reference Range Interpretation Comments LDH (test code = 1273475523) 191 U/L 120-246 Lab Interpretation (test code = Normal 44216-3) [facility] HospitalGlucose, [id number] 20:10:40 Test Item Value Reference Range Interpretation Comments GLUCOSE (test code = 5404629821) 129 mg/dL 70-110 H Lab Interpretation (test code = Abnormal 16097-4) [facility] HospitalCBC WITH [id number] 17:10:48 Test Item Value Reference Range Interpretation Comments WBC (test code = See_Comment H [Automated 6690-2) message] The system which generated this result transmit isabela reference range : 4.20 - 10.70 10*3/?L. The reference range was not used to interpret this result as normal/abnormal . RBC (test code = See_Comment [Automated 789-8) message] The system which generated this result transmit isabela reference range : 4.26 - 5.52 10*6/?L. The reference range was not used to interpret this result as normal/abnormal . HGB (test code = 16.1 g/dL 12.2-16.4 718-7) HCT (test code = 47.3 % 38.4-49.3 4544-3) MCV (test code = 92.6 fL 81.7-95.6 787-2) MCH (test code = 31.5 pg 26.1-32.7 785-6) MCHC (test code = 34.0 g/dL 31.2-35.0 786-4) RDW-SD (test code = 43.6 fL 38.5-51.6 77853-1) RDW-CV (test code = 12.8 % 12.1-15.4 788-0) PLT (test code = See_Comment [Automated 777-3) message] The system which generated this result transmit isabela reference range : 150 - 328 10*3/ ?L. The reference range was not u sed to interpret th is result as normal/abnormal . MPV (test code = 11.6 fL 9.8-13.0 49594-6) NRBC/100 WBC (test See_Comment [Automat ed code = 9613986119) message] The system which generated this result transmit isabela reference range : 0.0 - 10.0 /100 WBCs. The reference range was not used to interpret this result as normal/abnormal . NRBC x10^3 (test code See_Comment [Auto mated = 7581645054) message] The system which generated this result transmit isabela reference range : 10*3/?L. The reference range was not used to interpret this result as normal/abnormal . GRAN MAT (NEUT) % 74.4 % (test code = 770-8) IMM GRAN % (test code 0.60 % = 9296716256) LYMPH % (test code = 7.1 % 736-9) MONO % (test code = 10.2 % 5905-5) EOS % (test code = 6.9 % 713-8) BASO % (test code = 0.8 % 706-2) GRAN MAT x10^3(ANC) 13.50 10*3/uL 1.99-6.95 H (test code = 3625962558) IMM GRAN x10^3 (test 0.10 10*3/uL 0.00-0.06 H code = 1106118525) LYMPH x10^3 (test code 1.28 10*3/uL 1.09-3.23 = 731-0) MONO x10^3 (test code 1.85 10*3/uL 0.36-1.02 H = 742-7) EOS x10^3 (test code = 1.26 10*3/uL 0.06-0.53 H 711-2) BASO x10^3 (test code 0.14 10*3/uL 0.01-0.09 H = 704-7) Lab Interpretation Abnormal (test code = 57413-1) [facility] [id number] 16:54:19 Test Item Value Reference Interpretation Comments Range TROPONIN I (test 0.002 ng/mL See_Comment [Automated code = 5242036756) message] The system which generated this result transmitted reference range : <=0.034. The reference range was not used to interpret this result as normal/abnormal . LATIA (test code = Reference (Normal) LATIA) Range (defined by the 99th percentile reference limit): <= 0.034 ng/mL Note: Cardiac troponin begins to rise 3-4 hours after the onset of ischemia. Repeat in 4-6 hours if the sample was drawn within 3-4 hours of the onset of the symptom and found normal. Diagnosis of myocardial injury is made with acute changes in cTn concentrations with at least one serial sample above the 99th percentile upper reference limit (URL), taken together with the patient's clinical presentation. Biotin has been reported to cause a negative bias, interpret results relative to patient's use of biotin. Lab Interpretation Normal (test code = 66511-3) [facility] HospitalN-TERMINAL [id number] 16:51:18 Test Item Value Reference Range Interpretation Comments NT-proBNP (test code 111 pg/mL See_Comment [Autom ated = 7337416930) message] The system which generated this result transmitted reference range : <=125. The reference range was not used to interpret this result as normal/abnormal . LATIA (test code = LATIA) Biotin has been reported to cause a negative bias, interpret results relative to patient's use of biotin. Lab Interpretation Normal (test code = 67077-8) [facility] HospitalMAGNESIUM2022-12-05 16:43:36 Test Item Value Reference Range Interpretation Comments MAGNESIUM (test code = 6567634390) 2.3 mg/dL 1.7-2.4 Lab Interpretation (test code = Normal 09662-9) [facility]. METABOLIC PANEL (39870)2022-01-18 16:43:16 Test Item Value Reference Range Interpretation Comments NA (test code = 135 mmol/L 135-145 6214252753) K (test code = 4.5 mmol/L 3.5-5.0 4971058934) CL (test code = 104 mmol/L 98-108 9472573059) CO2 TOTAL (test code = 26 mmol/L 23-31 0233647191) AGAP (test code = 2-16 8724987358) BUN (test code = 15 mg/dL 7-23 0164805966) GLUCOSE (test code = 131 mg/dL 70-110 H 8371345596) CREATININE (test code = 0.87 mg/dL 0.60-1.25 3888658649) TOTAL BILI (test code = 0.6 mg/dL 0.1-1.3 7402682465) CALCIUM (test code = 9.0 mg/dL 8.6-10.6 1687300026) T PROTEIN (test code = 7.0 g/dL 6.3-8.2 6094298444) ALBUMIN (test code = 3.9 g/dL 3.5-5.0 5544262906) ALK PHOS (test code = 88 U/L 34-122 1177054616) ALTv (test code = 22 U/L 5-50 1742-6) AST(SGOT) (test code = 21 U/L 13-40 1394973683) eGFR (test code = mL/min/1.73m2 8916138319) LATIA (test code = LATIA) Association of Glomerular Filtration Rate (GFR) and Staging of Kidney Disease* + --+ --+ ------+| GFR (mL/min/1.73 m2) ?| With Kidney Damage ?| ?Without Kidney Damage+ --------+ --------+ +| ?>90 ?| ?Stage one ?| ? Normal ?+ ---+ ---+ -------+| ?60-89 ?| ?Stage two ?| ? Decreased GFR ? + --+ --+ ------+| ?30-59 ?| ?Stage three ?| ? Stage three ? + --+ --+ ------+| ?15-29 ?| ?Stage four ? | ? Stage four ?+ ---+ ---+ -------+| ?<15 (or dialysis) ? ?| ?Stage five ? | ? Stage five ?+ ---+ ---+ -------+ *Each stage assumes the associated GFR level has been in effect for at least three months. ?Stages 1 to 5, with or without kidney disease, indicate chronic kidney disease. Notes: Determination of stages one and two (with eGFR >59mL/min/1.73 m2) requires estimation of kidney damage for at least three months as defined by structural or functional abnormalities of the kidney, manifested by either:Pathological abnormalities or Markers of kidney damage (including abnormalities in the composition of the blood or urine or abnormalities in imaging tests). Lab Interpretation Abnormal (test code = 37646-2) [facility]"
[2022-02-13] MEDS ORDERED: LEVALBUTEROL 1.25 MG/3 ML NEB ONE (07:53)
[2022-02-13 08:09] LABS: Absolute Lymphocytes (CBC) 0.9 K/uL (0.7-4.9); Hematocrit 46.4 % (39.6-49.0); Lymphocytes % 5.1 % (15.3-44.8); MCV 94.4 fL (80-100); MPV 9.4 fL (7.6-11.3); RBC Red Blood Cell Count 4.91 M/uL (4.33-5.43)
--- NOTE | 2022-02-13 08:25 | RAD REPORT ---
EXAM DESCRIPTION: RAD - Chest Single View - 02/13/2022 8:14 am CLINICAL HISTORY: DYSPNEA COMPARISON: CHEST PA AND LAT 2 VIEW dated 02/21/2012; CHEST PA AND LAT 2 VIEW dated 11/03/2010; Ct Skul l/Thigh dated 01/14/2022; Thorax Wo Con dated 07/16/2021 FINDINGS: Near complete whiteout of the right lung. Shift of the mediastinum to the left. The left l owen is clear. No fracture. Cardiac silhouette is obscured IMPRESSION: Near complete white out of the right lung. This is likely predominantly secondary to a l arge right presumably malignant pleural effusion.
[2022-02-13 08:28] LABS: Albumin 2.7 g/dL (3.4-5.0); Bilirubin Direct 0.1 mg/dL (0-0.2); Bilirubin Total 0.4 mg/dL (0.2-1.0); Magnesium 2.4 mg/dL (1.6-2.4); Potassium 4.5 mmol/L (3.5-5.1); Protein, Total 7.1 g/dL (6.4-8.2)
[2022-02-13 08:41] LABS: SARS-COV-2 RT PCR NEGATIVE (NEGATIVE)
--- NOTE | 2022-02-13 08:50 | EDPHYS ---
Physician Documentation [facility] Name: Kaiden Ulrich Age: 71 yrs Sex: Male : 1950 Arrival Date: 02/13/2022 Time: 07:40 Bed 4 Private MD: ED Physician Ole Madden HPI: 02/13 07:47 This 71 yrs old Male presents to ER via Unassigned with complaints of sob. rn 07:47 The patient has shortness of breath at rest. Onset: The symptoms/episode began/occurred rn yesterday. Duration: The symptoms are continuous. The patient's shortness of breath is aggravated by exertion, light activity, is alleviated by nothing. Associated signs and symptoms: Pertinent positives: non-productive cough, Pertinent negatives: fever, hemoptysis. Severity of symptoms: At their worst the symptoms were moderate in the emergency department the symptoms are unchanged. The patient has experienced similar episodes in the past. The patient has been recently seen by a physician:. Pt states hx of lung cancer, had right neck biopsy yesterday, sob got worse yesterday. States sob often but worse now. NO fever. Doesn't feel ill. No trauma. . Historical: - Allergies: 07:55 No Known Allergies; jl7 - Home Meds: 07:57 metoprolol tartrate 50 mg Oral tab 1 tab once daily [Active]; Plavix 75 mg Oral tab 1 jl7 tab once daily [Active]; - PMHx: 07:57 Hypertensive disorder; lung cancer, stage 4; DVT; 01/2022; jl7 - Immunization history:: Adult Immunizations unknown. - Social history:: Smoking status: Patient/guardian denies using tobacco, Stopped _ months ago 1. - Family history:: not pertinent. - Hospitalizations: : No recent hospitalization is reported. ROS: 07:47 Constitutional: Negative for fever, chills Eyes: Negative for injury, pain, redness, rn and discharge, Neck: Negative for injury, pain, and swelling, Cardiovascular: Negative for chest pain, palpitations, and edema, Respiratory: + sob Abdomen/GI: Negative for abdominal pain, nausea, vomiting, diarrhea, and constipation, Back: Negative for injury and pain, MS/Extremity: Negative for injury and deformity, Skin: Negative for injury, rash, and discoloration, Neuro: Negative for headache, numbness, tingling, and seizure. Exam: 07:47 Constitutional: Thin male, + moderate tachypnea Head/Face: Normocephalic, atraumatic. rn Eyes: Periorbital areas with no swelling, redness, or edema. Cardiovascular: Regular rate and rhythm. No pulse deficits. Respiratory: + moderate tachypnea, coarse breath sounds left lung, diminished on right Abdomen/GI: Soft, non-tender Skin: Warm, dry MS/ Extremity: Pulses equal, no cyanosis Neuro: Awake and alert, GCS 15 07:52 ECG was reviewed by the Attending Physician. rn Vital Signs: 07:48 BP 173 / 98; Pulse 70; Resp 30; Temp 96.3; Pulse Ox 87% on R/A; Weight 54.43 kg; Height jl7 5 ft. 6 in. (167.64 cm); 08:45 BP 155 / 98; Pulse 82; Resp 25; Pulse Ox 98% on 40% BiPAP; ph 10:38 BP 131 / 94; Pulse 73; Resp 22; Pulse Ox 100% on 40% BiPAP; ph 11:58 BP 122 / 74; Pulse 55; Resp 19; Pulse Ox 99% on 40% BiPAP; mb9 12:57 BP 131 / 92; Pulse 68; Resp 19; Pulse Ox 100% on 40% BiPAP; Pain 0/10; mb9 13:30 BP 130 / 86; Pulse 68; Resp 19; Pulse Ox 100% on 40% BiPAP; mb9 14:30 BP 138 / 87; Pulse 60; Resp 19; Pulse Ox 100% on 40% BiPAP; mb9 15:18 BP 124 / 83; Pulse 77; Resp 19; Pulse Ox 100% on 40% BiPAP; mb9 07:48 Body Mass Index 19.37 (54.43 kg, 167.64 cm) jl7 MDM: 07:41 Patient medically screened. rn 08:26 ED course: Pt markedly improved with Bipap. rn 08:47 Differential diagnosis: Myocardial Infarction pneumonia, Pneumothorax pulmonary edema, rn Pulmonary Embolism pleural effusion. Data reviewed: vital signs, nurses notes, lab test result(s), radiologic studies, plain films, and as a result, I will admit patient. Counseling: I had a detailed discussion with the patient and/or guardian regarding: the historical points, exam findings, and any diagnostic results supporting the discharge/admit diagnosis, lab results, radiology results, the need to transfer to another facility, for higher level of care. Response to treatment: the patient's symptoms have markedly improved after treatment, and as a result, I will admit patient. ED course: COnsulted with Dr. Mercer, radiology not here for drainage of pleural effusion, Dr. chiang not available for PleurX catheter, recommends transfer. . 12:20 ED course: Waiting on bed assignment from [facility]. . rn 02/13 07:41 Order name: BMP; Complete Time: 08:40 rn 02/13 07:41 Order name: Blood Culture Adult (2) rn 02/13 07:41 Order name: CBC with Diff; Complete Time: 08:17 rn 02/13 07:41 Order name: Hepatic Function; Complete Time: 08:40 rn 02/13 07:41 Order name: Magnesium; Complete Time: 08:40 rn 02/13 07:41 Order name: NT PRO-BNP; Complete Time: 08:40 rn 02/13 07:41 Order name: PT-INR; Complete Time: 09:31 rn 02/13 07:41 Order name: Ptt, Activated; Complete Time: 09:31 rn 02/13 07:41 Order name: Troponin HS; Complete Time: 08:40 rn 02/13 07:41 Order name: XRAY CXR (1 view); Complete Time: 08:26 rn 02/13 07:41 Order name: COVID-19/FLU A+B; Complete Time: 08:50 rn 02/13 08:05 Order name: Lactate w/ 2H reflex if indic.; Complete Time: 09:31 rn 02/13 08:10 Order name: CT Chest For PE Angio; Complete Time: 09:31 rn 02/13 08:17 Order name: BIPAP; Complete Time: 14:02 rn 02/13 07:41 Order name: EKG; Complete Time: 07:42 rn 02/13 07:41 Order name: Cardiac monitoring; Complete Time: 07:58 rn 02/13 07:41 Order name: EKG - Nurse/Tech; Complete Time: 07:58 rn 02/13 07:41 Order name: IV Saline Lock; Complete Time: 07:58 rn 02/13 07:41 Order name: Labs collected and sent; Complete Time: 07:58 rn 02/13 07:41 Order name: O2 Per Protocol; Complete Time: 07:58 rn 02/13 07:41 Order name: O2 Sat Monitoring; Complete Time: 07:58 rn EC:52 Rate is 79 beats/min. Rhythm is regular. QRS Atco is Normal. WI interval is normal. QRS rn interval is normal. QT interval is normal. No Q waves. T waves are Normal. No ST changes noted. Clinical impression: NSR w/ Non-specific ST/T Changes. Interpreted by me. Reviewed by me. Administered Medications: :58 Drug: Xopenex (levalbuterol) (3) 1.25 mg Route: Inhalation; ph Disposition: 08:47 Critical Care:. rn Disposition Summary: 02/13/22 08:49 Transfer Ordered Transfer Location: [facility] rn Reason: Higher level of care rn Condition: Stable rn Problem: an ongoing problem rn Symptoms: have improved rn Accepting Physician: Dr.Sunjay Stewart Client Services Specialist [facility](02/13/22 16:12) mb9 Diagnosis - Malignant pleural effusion rn - Dyspnea, unspecified rn Forms: - Medication Reconciliation Form rn - SBAR form turner off time excluding procedures: 08:47 Critical care time: Bedside Care: 35 minutes, Consultation: 5 minutes. Total time: 40 rn minutes Signatures: Dispatcher [employer] EDMS Ole Madden MD MD rn Hall, Patricia RN RN Bob Cueto RN RN marquis7 Luz Elena Horowitz Mary Beth, RN RN mb9 Corrections: (The following items were deleted from the chart) 15:03 08:49 Dr. sary brannon 16:12 15:03 Dr.Sunjay Stewart Client Services Specialist [facility] eb mb9
--- NOTE | 2022-02-13 08:50 | ER ---
Nurse's Notes [facility] Name: Kaiden Ulrich Age: 71 yrs Sex: Male : 1950 Arrival Date: 02/13/2022 Time: 07:40 Bed 4 Private MD: Diagnosis: Malignant pleural effusion;Dyspnea, unspecified Presentation: 02/13 07:48 Chief complaint: Patient states: Difficulty breathing since yesterday, hx of stage 4 jl7 lung cancer, lymph node biopsy yesterday. Coronavirus screen: Vaccine status: difficulty breathing, Client presents with at least one sign or symptom that may indicate coronavirus-19. Ebola Screen: No symptoms or risks identified at this time. Initial Sepsis Screen: Does the patient meet any 2 criteria? RR > 20 per min. No. Patient's initial sepsis screen is negative. Does the patient have a suspected source of infection? No. Patient's initial sepsis screen is negative. Risk Assessment: Do you want to hurt yourself or someone else? Patient reports no desire to harm self or others. Onset of symptoms was February 12, 2022. Care prior to arrival: None. 07:48 Method Of Arrival: Wheelchair [facility] 07:48 Acuity: FIDELINA 2 jl7 Triage Assessment: 07:57 General: Appears distressed, uncomfortable, Behavior is cooperative, appropriate for [facility] age, anxious. Pain: Complains of pain in all over. Respiratory: Reports shortness of breath Onset: The symptoms/episode began/occurred yesterday, the patient has moderate shortness of breath. Historical: - Allergies: 07:55 No Known Allergies; jl7 - Home Meds: 07:57 metoprolol tartrate 50 mg Oral tab 1 tab once daily [Active]; Plavix 75 mg Oral tab 1 jl7 tab once daily [Active]; - PMHx: 07:57 Hypertensive disorder; lung cancer, stage 4; DVT; 01/2022; jl7 - Immunization history:: Adult Immunizations unknown. - Social history:: Smoking status: Patient/guardian denies using tobacco, Stopped _ months ago 1. - Family history:: not pertinent. - Hospitalizations: : No recent hospitalization is reported. Screenin:59 [facility] ED Fall Risk Assessment (Adult) History of falling in the last 3 months, ph including since admission No falls in past 3 months (0 pts) Confusion or Disorientation No (0 pts) Intoxicated or Sedated No (0 pts) Impaired Gait No (0 pts) Mobility Assist Device Used No (0 pt) Altered Elimination No (0 pt) Score/Fall Risk Level 0 - 2 = Low Risk Oriented to surroundings, Maintained a safe environment, Hourly rounding (assess needs \T\ fall precautionary measures) done, Used ambulatory aids as needed (educated on \T\ assisted with). Abuse screen: Denies threats or abuse. Denies injuries from another. Nutritional screening: No deficits noted. Tuberculosis screening: No symptoms or risk factors identified. Assessment: 08:00 General: Appears uncomfortable, slender, well groomed, Behavior is cooperative, ph appropriate for age, Denies fever. Pain: Denies pain. Neuro: Level of Consciousness is awake, alert, obeys commands, Oriented to person, place, time, situation. Cardiovascular: Reports shortness of breath, Denies chest pain, Capillary refill is sluggish Rhythm is sinus rhythm. Respiratory: Airway is patent Respiratory effort is unlabored, Respiratory pattern is tachypnea. GI: No signs and/or symptoms were reported involving the gastrointestinal system. Derm: Skin is fragile, is thin, Skin is pink, warm \T\ dry. Musculoskeletal: Circulation, motion, and sensation intact. Range of motion: intact in all extremities. 08:30 Reassessment: Pt's breathing remains labored, sitting up in tripod position, increasing ph anxiety noted, RT paged and at bedside to place pt on bi-pap, tolerating well at this time. Respiratory: Breath sounds are coarse bilaterally. 08:55 Reassessment: Pt taken to CT, placed on NRB mask for transport. ph 10:38 Reassessment: Patient appears in no apparent distress at this time. Patient and/or ph family updated on plan of care and expected duration. Pain level reassessed. Pt resting comfortably, bi-pap remains in place, daughter at bedside, awaiting transfer. 11:55 Reassessment: Report received from PREMA Welch. mb9 12:05 General: Appears uncomfortable, Behavior is cooperative, appropriate for age. Pain: mb9 Denies pain. Neuro: Level of Consciousness is awake, alert, obeys commands, Oriented to person, place, time, situation. Cardiovascular: Heart tones S1 S2 present Capillary refill is sluggish Rhythm is sinus bradycardia. Respiratory: Airway is patent Respiratory effort is even, unlabored, Respiratory pattern is regular, symmetrical, Breath sounds are coarse bilaterally. GI: Abdomen is flat, non-distended. : No signs and/or symptoms were reported regarding the genitourinary system. EENT:. Derm: Skin is fragile, is thin, Skin is dry, Skin is pink, Skin temperature is cool. Musculoskeletal: Range of motion: intact in all extremities. 12:47 Reassessment: Felicia Holt, pts daughter, cell phone number, . mb9 13:05 Reassessment: No changes from previously documented assessment. mb9 13:05 Pain: Denies pain. Neuro: pt currently sleeping. Cardiovascular: Rhythm is sinus mb9 rhythm. Respiratory: Airway is patent Respiratory effort is even, unlabored, Respiratory pattern is regular, symmetrical. Derm: Skin is pink, warm \T\ dry. 14:10 Reassessment: pt is AAOx3. Airway is patent. Respirations are even and unlabored. mb9 Rhythm is regular. Skin is pink, warm, and dry. 15:16 Reassessment: Gave report to transferring nurse, Yanet Johnston, at [facility]. mb9 16:07 Reassessment: Report given to Parmjit Keys. mb9 Vital Signs: 07:48 BP 173 / 98; Pulse 70; Resp 30; Temp 96.3; Pulse Ox 87% on R/A; Weight 54.43 kg; Height jl7 5 ft. 6 in. (167.64 cm); 08:45 BP 155 / 98; Pulse 82; Resp 25; Pulse Ox 98% on 40% BiPAP; ph 10:38 BP 131 / 94; Pulse 73; Resp 22; Pulse Ox 100% on 40% BiPAP; ph 11:58 BP 122 / 74; Pulse 55; Resp 19; Pulse Ox 99% on 40% BiPAP; mb9 12:57 BP 131 / 92; Pulse 68; Resp 19; Pulse Ox 100% on 40% BiPAP; Pain 0/10; mb9 13:30 BP 130 / 86; Pulse 68; Resp 19; Pulse Ox 100% on 40% BiPAP; mb9 14:30 BP 138 / 87; Pulse 60; Resp 19; Pulse Ox 100% on 40% BiPAP; mb9 15:18 BP 124 / 83; Pulse 77; Resp 19; Pulse Ox 100% on 40% BiPAP; mb9 07:48 Body Mass Index 19.37 (54.43 kg, 167.64 cm) jl7 ED Course: 07:40 Patient arrived in ED. eb 07:40 Ole Madden MD is Attending Physician. rn 07:49 Jeniffer Alvarado, PREMA is Primary Nurse. ph 07:50 Initial lab(s) drawn, by me, sent to lab. First set of blood cultures drawn by me, EKG ph done, by ED staff, reviewed by Ole Madden MD COVID swab sent to lab. Inserted saline lock: 20 gauge in left antecubital area, using aseptic technique. Blood collected. 07:55 Triage completed. 7 07:59 Arm band placed on Patient placed in an exam room, on a stretcher, on oxygen, on ph mold mover, on pulse oximetry. 08:01 Chaplain Serna called/ message left to call us back. eb 08:08 Patient has correct armband on for positive identification. Placed in gown. Bed in low ph position. Call light in reach. Side rails up X 1. Client placed on continuous cardiac and pulse oximetry monitoring. NIBP monitoring applied. Door closed. Noise minimized. Warm blanket given. 08:10 Chaplain Serna returned call/ he will be here in 20 minutes. eb 08:16 XRAY CXR (1 view) In Process Unspecified. EDMS 08:20 Initial lab(s) drawn, Lab(s) recollected, by me, sent to lab. Inserted saline lock: 22 ph gauge in left forearm, using aseptic technique. Blood collected. 08:47 initiated a transfer with Francesca from the [facility]. eb 08:52 No provider procedures requiring assistance completed. Patient transferred, IV remains ph in place. 09:06 CT Chest For PE Angio In Process Unspecified. EDMS 09:33 connected the cardiothoracic surgeon motion picture set grip for [facility] with Dr. Madden for eb patient transfer consultation. 09:48 connected the information services assistant motion picture set grip for [facility] with Dr. Madden for patient eb transfer consultation. 11:50 called the [facility] to check on the status of the transfer/ they are eb waiting for a bed to open up for our patient per Francesca. 12:47 Primary Nurse role handed off by Jeniffer Alvarado RN mb9 12:47 [place] Armijo, RN is Primary Nurse. mb9 13:53 BIPAP Sent. eb 14:55 administrative approval given by Mia Santos Rn/ patient has been accepted to [facility] RM 7106/ Dr. Nate Stewart has accepted the patient in transfer/ report to be called through the transfer center at [phone]. Administered Medications: 07:58 Drug: Xopenex (levalbuterol) (3) 1.25 mg Route: Inhalation; ph Medication: 08:10 VIS not applicable for this client. ph Outcome: 08:49 ER care complete, transfer ordered by . rn 15:15 Transferred by ground EMS to [facility], Transfer form completed. mb9 15:15 Condition: stable 16:12 Patient left the ED. mb9 Signatures: Dispatcher [employer] EDMS Ole Madden MD MD rn Hall, Patricia RN RN ph Bob Zimmerman RN RN jl7 Luz Elena Horowitz Mary Beth, RN RN mb9 Corrections: (The following items were deleted from the chart) 08:07 08:00 Cardiovascular: Rhythm is ph ph 08:52 08:52 Patient admitted, IV remains in place. ph ph 09:35 09:33 connected the information services assistant motion picture set grip for [facility] with Dr. Madden for patient eb transfer consultation. eb
[2022-02-13 09:01] LABS: Protime INR 1.23
--- NOTE | 2022-02-13 09:23 | RAD REPORT ---
EXAM DESCRIPTION: CT - Chest For Pe Angio - 02/13/2022 9:04 am CLINICAL HISTORY: lung cancer, sob COMPARISON: Thorax Wo Con dated 07/16/2021; Lung Cancer Screening CT W/O dated 12/10/2020; Lung Cancer Screening CT W/O dated 11/01/2019; Lung Cancer Screening CT W/O dated 09/05/2018; Ct Skull/Thigh dated 01/14/2022 TECHNIQUE: Dynamically enhanced axial 3 mm thick images of the chest were obtained during administra tion of <100> mL Isovue 370 IV contrast. Coronal and oblique reconstruction images were generated and reviewed. Exam utilizes a protocol for optimal evaluation of pulmonary arterial tree. Maximum intensity projections 3D imaging was utilized All CT scans are performed using dose optimization technique as appropriate and may include automated exposure control or mA/KV adjustment according to patient size. FINDINGS: Chest Wall: Supraclavicular lymphadenopathy noted. Some air within the soft tissues may be from recent biopsy. Lungs: Known or right-sided lung lesions with underlying atelectasis. Only a small portion of the rig ht upper lobe remains aerated. New 10 mm left lower lobe pulmonary nodule. Other nodules noted that a re new in the left lung. Pleura: Very large right pleural effusion with right left mediastinal shift. Mediastinum/dong: Right to left mediastinal shift. Mediastinal and hilar adenopathy noted but difficu lt to measure given the mass effect. Pulmonary arteries/Aorta: No filling defect identified. No aortic aneurysm. Heart: No significant pericardial effusion. Normal heart size. Upper abdomen: No acute abnormality. Bones: No acute abnormality. IMPRESSION: Negative for pulmonary embolism. Very large right pleural effusion with small area of ae rated lung in the right upper lobe. Mediastinal shift from right to left is present as result of mass effect from the fusion. The effusion is presumably malignant. New left lung nodules which would jayleen jennifer disease progression since 01/14/2022.
[2022-02-13] MEDS ORDERED: NA CHLORIDE 0.9% 1,000 ML ONE (12:53)
[2022-02-13 16:38] VITALS: TEMP 96.3
[2022-02-13 16:43] VITALS: O2SAT 100
[2022-02-13 16:47] VITALS: BP 124/83
--- NOTE | 2022-02-16 08:37 | EKG ---
Test Date: 2022-02-13 Test Time: 07:43:23 Insole Taper: JEY MEASUREMENT RESULTS: Intervals: Rate: 79 UT: 170 QRSD: 66 QT: 392 QTc: 449 [place]: P: 35 UT: 170 QRS: 72 T: 67 INTERPRETIVE STATEMENTS: Normal sinus rhythm Septal infarct, age undetermined Abnormal ECG Compared to ECG 02/05/2022 08:44:21 No significant changes Electronically Signed On 02-16-22 08:32:55 REDUCING SALON ATTENDANT by Peter Sewell
== END 2022-02-13 16:12 | disposition short-term general hospital (02) ==
LOC: ER 07:39
DX: C34.90 Malignant neoplasm of unspecified part of unspecified bronchus or lung (principal); J91.0 Malignant pleural effusion; Z20.822 Contact with and (suspected) exposure to COVID-19; I10 Essential (primary) hypertension; Z86.718 Personal history of other venous thrombosis and embolism; Z79.01 Long term (current) use of anticoagulants
CPT/HCPCS: 93005; 87040 ×2; 85025; 80048; 36415; 83735; 85610; 80076; 83605; 85730; 84484; 83880; 0240U; 71275; 71045; 99285; Q9967; J7614; J7030